=== PATIENT | female | born 2000 | race Caucasian/White ===

== ENCOUNTER 2024-06-27 13:58 | Emergency (ER) | payer SELFPAY ==
[2024-06-27 14:06] VITALS: BP 110/67; PULSE 66; TEMP 37; O2SAT 98; BMI 24.9
[2024-06-27] MEDS: BACITRACIN 0.9 GM PACKET 1 PACKET TOPICAL (16:14)
[2024-06-27] MEDS: LIDOCAINE HCL 1% 100 MG/10 ML MDV INJ (16:15)
--- NOTE | 2024-06-27 16:16 | PC.NURSE ---
area cleansed by PA at bedside and 2 sutures applied. Bacitracin and dressing in place.
--- NOTE | 2024-06-27 16:27 | ED.WOUNDLAC1 ---
HPI - Wound/Laceration General Chief Complaint: Wound/Laceration Stated Complaint: LACERATION - HAND Time Seen by Provider: 06/27/24 16:00 Source: patient Mode of arrival: walk-in History of Present Illness HPI narrative: Patient is a 24-year-old female presents to the emergency department for small laceration to the palm of the right hand. She has a 1 cm laceration noted on the palm of the right hand just proximal to the second MCP joint. Bleeding is well-controlled. Tetanus is up-to-date. She states she was washing dishes when a glass broke and a an approximately 2 to 3 cm piece of glass caught her. She is right-hand dominant. No medications prior to arrival. She has no concern for Related Data Previous Rx's ?Medication ?Instructions ?Recorded cephalexin 500 mg capsule 500 mg PO Q8H 5 days #15 caps 06/27/24 Allergies Allergy/AdvReac Type Severity Reaction Status Date / Time No Known Drug Allergies Allergy Verified 06/27/24 14:06 Review of Systems ROS Constitutional Denies: fever or chills Ears, nose, mouth, and throat Denies: throat pain or nasal congestion Respiratory Denies: shortness of breath Gastrointestinal Denies: nausea or vomiting Integumentary/Breast Denies: rash Neurological Denies: numbness in extremities or weakness in extremities Hematologic/Lymphatic Denies: easy bruising or easy bleeding PFSH PFSH Social History Little interest or pleasure in doing things: not at all Feeling down, depressed, or hopeless: not at all Exam Narrative Exam Narrative: Gen.: Awake, alert, in no distress Head: Normocephalic, atraumatic ENT: Moist mucous membranes Respiratory: No respiratory distress Extremities: Moves extremities equally, 1 cm laceration noted on the palmar aspect of the right hand just proximal to the second MCP joint. Normal flexion and extension at the DIP and PIP joints of the right second digit. No evidence of tendon deficit. No subcutaneous tissue exposure. No active bleeding. Psych: Normal mood and affect Neuro: No focal neuro deficit Skin: Warm, dry Constitutional Vital Signs, click to edit/add: Last Vital Signs Temp 98.6 F 06/27/24 14:06 Pulse 66 06/27/24 14:06 Resp 16 06/27/24 14:06 BP 110/67 06/27/24 14:06 Pulse Ox 98 06/27/24 14:06 O2 Del Method Room Air 06/27/24 14:06 Course Vital Signs Vital signs: Vital Signs Temperature 98.6 F 06/27/24 14:06 Pulse Rate 66 06/27/24 14:06 Respiratory Rate 16 06/27/24 14:06 Blood Pressure 110/67 06/27/24 14:06 Pulse Oximetry 98 06/27/24 14:06 Oxygen Delivery Method Room Air 06/27/24 14:06 Temperature 98.6 F 06/27/24 14:06 Pulse Rate 66 06/27/24 14:06 Respiratory Rate 16 06/27/24 14:06 Blood Pressure 110/67 06/27/24 14:06 Pulse Oximetry 98 06/27/24 14:06 Oxygen Delivery Method Room Air 06/27/24 14:06 MDM - Wound/Laceration MDM Narrative Medical decision making narrative: X-rays obtained from the lobby, these are unremarkable. Laceration was repaired without difficulty please see procedure note for details. Follow-up with PCP for suture removal in 7 to 10 days and return to the ER if symptoms change or worsen. Keflex given as a precaution for prevention of infection. Laceration repair: Done under sterile conditions. The use of Shur-Clens prep the area. Local injection with lidocaine 1% was used, approximately 5 cc. The wound was irrigated copiously with normal saline. The wound was explored there was no evidence of foreign material. The laceration was approximated with 4-0 nylon. 2 simple interrupted sutures were placed. Patient tolerated the procedure well. The patient was neurovascularly intact post. the patient had bacitracin applied to the laceration and a dry sterile dressing was place. The patient will need to follow-up in the next 7-10 days for removal SHARED APC VISIT, PHYSICIAN ATTESTATION: [id number] I performed a substantive part of the MDM during the patient?s E/M visit. I personally evaluated and examined the patient. I personally made or approved the documented management plan and acknowledge its risk of complications. Medical Records Attestation: I reviewed the patient's medical records. Imaging Data XR hand: Attestation: I have reviewed the pertinent imaging results. Discharge Plan Discharge Chief Complaint: Wound/Laceration Clinical Impression: Laceration of right hand Patient Disposition: Home, Self-Care Time of Disposition Decision: 16:24 Condition: Good Prescriptions / Home Meds: New cephalexin 500 mg capsule 500 mg PO Q8H 5 Days Qty: 15 0RF Print Language: [place] Instructions: Laceration (ED) Additional Instructions: Sutures removed in 7-10 days with PCP Referrals: AMY BARNETT [Primary Care Provider] - 1 week
== END 2024-06-27 16:31 | disposition home or self-care (01) ==
PROVIDERS: Emergency Provider Emergency Medicine; PCP Physician Assistant
DX: S61.411A Laceration without foreign body of right hand, initial encounter (principal); W25.XXXA Contact with sharp glass, initial encounter
CPT/HCPCS: 12001; 73130; 99283